=== PATIENT | female | born 1975 | race Caucasian/White ===

== ENCOUNTER → 2017-09-06 | Outpatient (CLI) | payer OTHER ==
[~2017-09-06] MED LIST: BIRTH CONTROL1 EACH PO; CHERATUSSIN AC480 ML PO; MEDROL DOSEPAK4 MG PO; METHYLPRED-DP4 MG PO; MOTRIN800 MG PO; NOVAPLUS V0.09 MG/Ac IH; PHENERGAN25 M1 PO; ZOFRAN ODT4 MG SL
[2017-09-06 12:37] LABS: BASO # 0.1 10*3/uL (0.0-0.1); BASO % 0.7 % (0.0-1.0); EOS # 0.4 10*3/uL (0.0-0.4); EOS % 3.7 % (1.0-4.0); HEMATOCRIT 37.1 % (37.0-47.0); HEMOGLOBIN 12.4 g/dl (12.0-16.0); LYMPH # 2.6 10*3/uL (1.3-4.4); LYMPH % 24.6 % (27.0-41.0); MEAN CELL VOLUME 88.5 fl (81.0-99.0); MEAN CORPUSCULAR HGB 29.6 pg (27.0-31.0); MEAN CORPUSCULAR HGB CONC 33.4 g/dl (33.0-37.0); MEAN PLATELET VOLUME 10.6 fl (9.6-12.3); MONO # 0.7 10*3/uL (0.1-1.0); NEUT # 6.6 10*3/uL (2.3-7.9); NEUT % 63.6 % (47.0-73.0); PLATELET COUNT AUTOMATED 302 10*3/uL (130-400); RED BLOOD COUNT 4.19 10*6/uL (4.10-5.10); RED CELL DISTRI WIDTH 12.3 % (0-14.5); WHITE BLOOD COUNT 10.4 10*3/uL (4.8-10.8)
[2017-09-07 06:09] LABS: HEPATITIS B SURFACE AG Negative (Negative); HIV 1+2 AB + HIV1 P24 AG Non Reactive (Non Reactive)
[2017-09-09 19:06] LABS: T.PALLIDUM ANTIBODIES Negative (Negative)
== END | disposition home or self-care (01) ==
LOC: LAB 11:49
PROVIDERS: Nurse Practitioner Family
DX: Z34.91 Encounter for supervision of normal pregnancy, unspecified, first trimester (principal)

== ENCOUNTER 2018-10-05 11:19 | Emergency (ER) | payer OTHER ==
[~2018-10-05] VITALS: Ht 157.4 cm; Wt 72.6 kg
[2018-10-05] MEDS ORDERED: VOLTAREN100 GM T (12:22)
== END 2018-10-05 12:31 | disposition home or self-care (01) ==
LOC: ED 11:19
DX: M79.18 Myalgia, other site (principal); M54.6 Pain in thoracic spine; M54.2 Cervicalgia; F10.10 Alcohol abuse, uncomplicated; Z88.1 Allergy status to other antibiotic agents; Z88.0 Allergy status to penicillin

== ENCOUNTER 2019-11-13 12:39 | Emergency (ER) | payer OTHER ==
[~2019-11-13] VITALS: Ht 160 cm; Wt 77.1 kg
[~2019-11-13 12:39] MED LIST changes: +VOLTAREN100 GM T
[2019-11-13] MEDS ORDERED: MAGNESIUM500 MG PO (12:54)
[2019-11-13] MEDS ORDERED: VITAMIN D250 MCG PO (12:55)
[2019-11-13 14:42] LABS: BASO # 0.2 10*3/uL (0.0-0.1); BASO % 1.4 % (0.0-1.0); EOS # 0.9 10*3/uL (0.0-0.4); EOS % 7.8 % (1.0-4.0); HEMATOCRIT 43.5 % (37.0-47.0); HEMOGLOBIN 14.1 g/dl (12.0-16.0); LYMPH # 2.8 10*3/uL (1.3-4.4); MEAN CELL VOLUME 91.4 fl (81.0-99.0); MEAN CORPUSCULAR HGB 29.6 pg (27.0-31.0); MEAN CORPUSCULAR HGB CONC 32.4 g/dl (33.0-37.0); MEAN PLATELET VOLUME 10.2 fl (9.6-12.3); MONO # 0.7 10*3/uL (0.1-1.0); MONO % 6.2 % (3.0-9.0); NEUT % 60.3 % (47.0-73.0); PLATELET COUNT AUTOMATED 314 10*3/uL (130-400); RED BLOOD COUNT 4.76 10*6/uL (4.10-5.10); RED CELL DISTRI WIDTH 12.4 % (0-14.5); WHITE BLOOD COUNT 11.6 10*3/uL (4.8-10.8)
[2019-11-13 14:58] LABS: ALBUMIN 3.8 gm/dl (3.1-4.5); ALKALINE PHOSPHATASE 84 U/L (45-117); BUN 14 mg/dl (7-24); CHLORIDE 108 mmol/L (98-107); CREATININE 0.67 mg/dL (0.55-1.02); SGOT/AST 12 IU/L (3-35); SGPT/ALT 24 U/L (12-78); SODIUM 141 mmol/L (136-145); TOTAL PROTEIN 7.8 gm/dL (6.4-8.2)
[2019-11-13 15:00] LABS: TROPONIN I < 0.015 ng/ml (<0.045)
[2019-11-13 17:11] LABS: COLOR YELLOW (YELLOW)
[2019-11-13 17:12] LABS: BILIRUBIN NEGATIVE (NEGATIVE); BLOOD TRACE-INTACT (NEGATIVE); CLARITY SL CLOUDY (CLEAR); GLUCOSE NEGATIVE (NEGATIVE); KETONE NEGATIVE (NEGATIVE); NITRITE NEGATIVE (NEGATIVE); PH 6.5 (5.0-9.0); UROBILINOGEN 0.2 E.U./dl (0.2-1.0)
[2019-11-13 17:13] LABS: LEUKO ESTERASE TRACE (NEGATIVE); MUCOUS 1+; RBC 0-2 rbc/hpf (0-2)
[2019-11-13] MEDS ORDERED: MACROBID100 M1 PO (17:17)
== END 2019-11-13 17:18 | disposition home or self-care (01) ==
LOC: ED 12:39
PROVIDERS: Physician Assistant
DX: N39.0 Urinary tract infection, site not specified (principal); B34.9 Viral infection, unspecified; R42 Dizziness and giddiness; Z88.0 Allergy status to penicillin; Z88.1 Allergy status to other antibiotic agents; Z79.899 Other long term (current) drug therapy

== ENCOUNTER 2020-06-29 17:37 | Emergency (ER) | payer OTHER ==
[~2020-06-29] VITALS: Ht 160 cm; Wt 72.6 kg
[~2020-06-29 17:37] MED LIST changes: +MACROBID100 M1 PO; +MAGNESIUM500 MG PO; +VITAMIN D250 MCG PO
[2020-06-29 19:20] LABS: BASO # 0.1 10*3/uL (0.0-0.1); BASO % 0.8 % (0.0-1.0); EOS # 0.4 10*3/uL (0.0-0.4); EOS % 3.8 % (1.0-4.0); HEMATOCRIT 42.4 % (37.0-47.0); LYMPH # 3.1 10*3/uL (1.3-4.4); LYMPH % 27.8 % (27.0-41.0); MEAN CELL VOLUME 89.8 fl (81.0-99.0); MEAN CORPUSCULAR HGB 28.6 pg (27.0-31.0); MEAN CORPUSCULAR HGB CONC 31.8 g/dl (33.0-37.0); MEAN PLATELET VOLUME 10.3 fl (9.6-12.3); MONO # 0.8 10*3/uL (0.1-1.0); MONO % 7.2 % (3.0-9.0); NEUT # 6.6 10*3/uL (2.3-7.9); NEUT % 59.9 % (47.0-73.0); PLATELET COUNT AUTOMATED 352 10*3/uL (130-400); RED BLOOD COUNT 4.72 10*6/uL (4.10-5.10); RED CELL DISTRI WIDTH 12.7 % (0-14.5)
[2020-06-29 19:36] LABS: ALBUMIN 3.9 gm/dl (3.1-4.5); ALKALINE PHOSPHATASE 92 U/L (45-117); BUN 11 mg/dl (7-24); CHLORIDE 109 mmol/L (98-107); CREATININE 0.68 mg/dL (0.55-1.02); POTASSIUM 3.6 mmol/L (3.5-5.1); SGOT/AST 15 IU/L (3-35); SGPT/ALT 23 U/L (12-78); SODIUM 140 mmol/L (136-145)
== END 2020-06-29 21:00 | disposition home or self-care (01) ==
LOC: ED 17:37
PROVIDERS: Physician Assistant
DX: Z20.828 Contact with and (suspected) exposure to other viral communicable diseases (principal); Z88.8 Allergy status to other drugs, medicaments and biological substances; Z88.0 Allergy status to penicillin; Z79.899 Other long term (current) drug therapy

== ENCOUNTER 2020-07-03 14:17 | Emergency (ER) | payer OTHER ==
[~2020-07-03] VITALS: Ht 160 cm; Wt 72.6 kg
[2020-07-03 15:46] LABS: BILIRUBIN NEGATIVE; BLOOD NEGATIVE (NEGATIVE); CLARITY CLEAR (CLEAR); COLOR YELLOW (YELLOW); GLUCOSE NEGATIVE; KETONE NEGATIVE; LEUKO ESTERASE NEGATIVE (NEGATIVE); NITRITE NEGATIVE (NEGATIVE); RBC 0-2 rbc/hpf (0-2); SPECIFIC GRAVITY <= 1.005 (1.001-1.030); UROBILINOGEN 0.2 E.U./dl (0.0-1.0); WBC 0-2 wbc/hpf (0-5)
[2020-07-03] MEDS ORDERED: NAPROSYN500 MG PO (16:08)
[2020-07-03] MEDS ORDERED: METHOCARBAMOL500 M1 PO (16:08)
== END 2020-07-03 16:10 | disposition home or self-care (01) ==
LOC: ED 14:17
PROVIDERS: Nurse Practitioner Family
DX: S39.012A Strain of muscle, fascia and tendon of lower back, initial encounter (principal); Z88.0 Allergy status to penicillin; Z88.8 Allergy status to other drugs, medicaments and biological substances; Z79.899 Other long term (current) drug therapy; X58.XXXA Exposure to other specified factors, initial encounter; Y93.89 Activity, other specified; Y92.89 Other specified places as the place of occurrence of the external cause; Y99.8 Other external cause status

== ENCOUNTER → 2022-12-08 | Outpatient (CLI) | payer OTHER ==
[~2022-12-08] MED LIST changes: +METHOCARBAMOL500 M1 PO; +NAPROSYN500 MG PO
== END | disposition home or self-care (01) ==
LOC: LAB 08:07
PROVIDERS: ATTEND Nurse Practitioner
DX: N92.6 Irregular menstruation, unspecified (principal)

== ENCOUNTER 2023-09-08 15:16 | Emergency (ER) | payer OTHER ==
[~2023-09-08] VITALS: Ht 160 cm; Wt 77.1 kg
[~2023-09-08 15:16] MED LIST changes: +CYCLOBENZAPRINE10 MG PO; +KETOROLAC10 MG PO
[2023-09-08] MEDS ORDERED: MEDROL DOSEPAK4 MG PO (20:20)
== END 2023-09-08 20:29 | disposition home or self-care (01) ==
LOC: ED 15:16
DX: J06.9 Acute upper respiratory infection, unspecified (principal); J40 Bronchitis, not specified as acute or chronic; Z88.0 Allergy status to penicillin; Z88.1 Allergy status to other antibiotic agents; Z88.8 Allergy status to other drugs, medicaments and biological substances; Z98.890 Other specified postprocedural states; Z20.822 Contact with and (suspected) exposure to COVID-19

== ENCOUNTER 2023-12-20 17:38 | Emergency (ER) | payer OTHER ==
[~2023-12-20] VITALS: Ht 160 cm; Wt 81.6 kg
[2023-12-20] MEDS ORDERED: EPINEPHrine Hydrochloride 1 MG/ML AMP IM ONE (17:55)
[2023-12-20] MEDS ORDERED: EPIPEN 2-P0.3 MG/0.3 IJ (17:55)
[2023-12-20] MEDS ORDERED: diphenhydrAMINE hydrochloride 50 MG/ML VIAL IV ONE (17:55)
[2023-12-20] MEDS ORDERED: SODIUM CHLORIDE 0.9% 1,000 ML IV ONE (17:55)
[2023-12-20] MEDS ORDERED: FAMOTIDINE 50 ML IV ONE (17:55)
[2023-12-20] MEDS ORDERED: methylPREDNISolone sod succ 125 MG VIAL IV ONE (17:55)
[2023-12-20 18:10] LABS: BASO # 0.1 10*3/uL (0.0-0.1); BASO % 0.9 % (0.0-1.0); EOS # 0.4 10*3/uL (0.0-0.4); EOS % 3.8 % (1.0-4.0); HEMATOCRIT 49.9 % (37.0-47.0); LYMPH # 4.2 10*3/uL (1.3-4.4); LYMPH % 37.3 % (27.0-41.0); MEAN CORPUSCULAR HGB 28.6 pg (27.0-31.0); MEAN CORPUSCULAR HGB CONC 32.5 g/dl (33.0-37.0); MEAN PLATELET VOLUME 10.1 fl (9.6-12.3); MONO # 1.1 10*3/uL (0.1-1.0); MONO % 9.7 % (3.0-9.0); NEUT # 5.4 10*3/uL (2.3-7.9); NEUT % 47.9 % (47.0-73.0); PLATELET COUNT AUTOMATED 348 10*3/uL (130-400); RED BLOOD COUNT 5.67 10*6/uL (4.10-5.10); RED CELL DISTRI WIDTH 12.9 % (0-14.5); WHITE BLOOD COUNT 11.2 10*3/uL (4.8-10.8)
[2023-12-20 18:26] LABS: ALKALINE PHOSPHATASE 97 U/L (46-116); BUN 13 mg/dl (9-23); CHLORIDE 106 mmol/L (98-107); SGPT/ALT 26 U/L (5-49); TOTAL PROTEIN 7.4 gm/dL (6.0-8.0)
== END 2023-12-20 18:54 | disposition home or self-care (01) ==
LOC: ED 17:38
PROVIDERS: Emergency Medicine
DX: T78.2XXA Anaphylactic shock, unspecified, initial encounter (principal); L50.9 Urticaria, unspecified; Z88.0 Allergy status to penicillin; Z88.1 Allergy status to other antibiotic agents; Z90.49 Acquired absence of other specified parts of digestive tract; Z98.890 Other specified postprocedural states

== ENCOUNTER → 2024-06-01 | Outpatient (CLI) | payer OTHER ==
[~2024-06-01] MED LIST changes: +EPIPEN 2-P0.3 MG/0.3 IJ
== END | disposition home or self-care (01) ==
LOC: US 03:00
PROVIDERS: ATTEND Nurse Practitioner
DX: N93.9 Abnormal uterine and vaginal bleeding, unspecified (principal)